=== PATIENT | male | born 2000 | race African-American/Black ===

== ENCOUNTER 2022-07-17 10:14 | Emergency (ER) | payer SELFPAY ==
[2022-07-17 10:43] LABS: Absolute Lymphocytes (CBC) 1.4 K/uL (0.7-4.9); Hematocrit 46.1 % (39.6-49.0); Lymphocytes % 24.7 % (15.3-44.8); MCV 91.1 fL (80-100); RBC Red Blood Cell Count 5.06 M/uL (4.33-5.43)
[2022-07-17] MEDS ORDERED: LEVETIRACETAM 500 MG/5 ML VIAL IV ONE (10:43)
[2022-07-17] MEDS ORDERED: NA CHLORIDE 0.9% 100 ML ONE (10:47)
[2022-07-17 10:59] LABS: Albumin 4.2 g/dL (3.4-5.0); Bilirubin Direct 0.3 mg/dL (0-0.2); Bilirubin Total 1.1 mg/dL (0.2-1.0); Potassium 3.4 mmol/L (3.5-5.1); Protein, Total 7.2 g/dL (6.4-8.2)
[2022-07-17 11:32] LABS: Urine Blood Negative (Negative); Urine Glucose Negative (Negative); Urine Protein Negative (Negative); Urine Specific Gravity 1.015 (1.005-1.030); Urine pH 7.5 (5.0-7.0)
--- NOTE | 2022-07-17 11:34 | EDPHYS ---
Physician Documentation [facility] Name: Cesar Clark Age: 22 yrs Sex: Male : 2000 Arrival Date: 07/17/2022 Time: 10:14 Bed 18 Private MD: ED Physician Benjie Wynne HPI: 07/17 11:27 This 22 yrs old Black Male presents to ER via Wheelchair with complaints of Seizure. en 11:27 22-year-old male with history of seizure disorder presents to ED after seizure activity en prior to arrival. Patient's been out of his Keppra for 3 weeks now. His breakthrough seizures are triggered when he runs out of medications. He describes it as had frequent twitching that will eventually turn into full-blown tonic-clonic seizures if not medicated. Patient reported that he started twitching and his coworker grabbed him before he fell to the ground. No recent illnesses, fever, chills, nausea, vomiting. He does not have a local primary care provider. Historical: - Allergies: 10:23 Shellfish Containing Products; vg1 - Home Meds: 10:23 Keppra Oral [Active]; vg1 - PMHx: 10:23 Seizure; vg1 - PSHx: 10:23 None; vg1 - Immunization history:: Client reports having NOT received the Covid vaccine. - Social history:: Smoking status: Reported history of juuling and/or vaping. ROS: 11:27 Constitutional: Negative for fever, chills, and weight loss. en 11:27 Neuro: Positive for seizure activity. 11:27 All other systems are negative. en Exam: 11:27 Constitutional: This is a well developed, well nourished patient who is awake, alert, en and in no acute distress. Head/Face: Normocephalic, atraumatic. Eyes: Pupils equal round and reactive to light, extra-ocular motions intact. Lids and lashes normal. Conjunctiva and sclera are non-icteric and not injected. Cornea within normal limits. Periorbital areas with no swelling, redness, or edema. Cardiovascular: Regular rate and rhythm with a normal S1 and S2. No gallops, murmurs, or rubs. Normal PMI, no JVD. No pulse deficits. Respiratory: Lungs have equal breath sounds bilaterally, clear to auscultation and percussion. No rales, rhonchi or wheezes noted. No increased work of breathing, no retractions or nasal flaring. Neuro: Awake and alert, GCS 15, oriented to person, place, time, and situation. Cranial nerves II-XII grossly intact. Motor strength 5/5 in all extremities. Sensory grossly intact. Cerebellar exam normal. Unable to test gait on arrival secondary to frequent twitching concerning for impending seizure Vital Signs: 10:18 BP 136 / 79; Pulse 77; Resp 16; Temp 98.2(O); Pulse Ox 100% on R/A; Weight 77.11 kg; vg1 Height 6 ft. 1 in. (185.42 cm); 11:52 BP 128 / 79; Pulse 44; Resp 17; Pulse Ox 100% on R/A; kr3 10:18 Body Mass Index 22.43 (77.11 kg, 185.42 cm) vg1 Mari Coma Score: 10:23 Eye Response: spontaneous(4). Verbal Response: oriented(5). Motor Response: obeys vg1 commands(6). Total: 15. MDM: 10:43 Patient medically screened. en 11:27 Differential diagnosis: seizure. Data reviewed: vital signs, nurses notes, lab test en result(s), EKG, EKG with sinus bradycardia at [address] inversion in lead III but no reciprocal changes.. Consideration of Admission/Observation Escalation of care including admission/observation considered. Considered admission but breakthrough seizure is most likely cause and twitching has resolved after Keppra. No additional progression of seizure in the ED so patient is safe for discharge. I considered the following discharge prescriptions or medication management in the emergency department Medications were administered in the Emergency Department. See MAR IV Keppra given in the ED for low. Independent interpretation of the following test(s) in the Emergency Department satellite project site monitor: Patient with normal sinus rhythm at 74 bpm. Is not consistent with the EKG that showed 42 bpm. He is not symptomatic. ED course: Reviewed labs with patient. Spoke at length regarding community resources and provided access information for continued refills of his Keppra. We will give a single month refill to allow him time to get in. He was able to ambulate to the bathroom unassisted and the twitching is stopped. His heart rate is remained within normal limits. Will DC home in care of coworker. 07/17 10:23 Order name: Basic Metabolic Panel en 07/17 10:23 Order name: CBC with Diff en 07/17 10:23 Order name: Hepatic Function en 07/17 10:23 Order name: Magnesium en 07/17 10:23 Order name: Cardiac monitoring; Complete Time: 10:35 en 07/17 10:23 Order name: EKG - Nurse/Tech; Complete Time: 11:19 en 07/17 10:23 Order name: IV Saline Lock; Complete Time: 10:52 en 07/17 10:23 Order name: Labs collected and sent; Complete Time: 10:52 en 07/17 10:23 Order name: NPO; Complete Time: 10:34 en 07/17 10:23 Order name: O2 Per Protocol; Complete Time: 10:34 en 07/17 10:23 Order name: O2 Sat Monitoring; Complete Time: 10:35 en 07/17 10:23 Order name: Urine Dipstick-Ancillary (obtain specimen); Complete Time: 11:30 en 07/17 10:54 Order name: CBC with Automated Diff; Complete Time: 11:26 EDMS 07/17 10:59 Order name: Basic Metabolic Panel; Complete Time: 11:26 EDMS 07/17 10:59 Order name: Liver (Hepatic) Function; Complete Time: 11:26 EDMS 07/17 10:59 Order name: Magnesium; Complete Time: 11:26 EDMS 07/17 11:33 Order name: Urine Dipstick-Ancillary EDMS Administered Medications: 10:52 Drug: Keppra (levETIRAcetam) 1000 mg Route: IV; Rate: bolus; Site: right antecubital; kr3 11:56 Follow up: Response: No adverse reaction; IV Status: Completed infusion; IV Intake: kr3 100ml Disposition: 13:58 Co-signature as Attending Physician, Benjie Wynne MD I agree with the assessment and kdr plan of care. Disposition Summary: 07/17/22 11:33 Discharge Ordered Location: Home en Problem: an acute exacerbation en Symptoms: have improved en Condition: Stable en Diagnosis - Breakthrough Seizure en Followup: en - With: Karen Chavira MD - When: 1 - 2 days - Reason: Discharge Instructions: - Discharge Summary Sheet en - Seizure, Adult, [id number] en Forms: - Medication Reconciliation Form en - Thank You Letter en - Antibiotic Education en - Prescription Opioid Use en Prescriptions: - Keppra 500 mg Oral Tablet - take 1 tablet by ORAL route every 12 hours; 60 tablet; Refills: 0, Product en Selection Permitted Signatures: Dispatcher [employer] Benjie Estrada MD MD kdr Garcia, Victoria RN RN vg1 Bhavana Desai PA PA en Loida Lakhani RN RN kr3 Corrections: (The following items were deleted from the chart) 10:24 10:23 Allergies: No Known Allergies; vg1 vg1
--- NOTE | 2022-07-17 11:34 | ER ---
Nurse's Notes [facility] Name: Cesar Clark Age: 22 yrs Sex: Male : 2000 Arrival Date: 07/17/2022 Time: 10:14 Bed 18 Private MD: Diagnosis: Breakthrough Seizure Presentation: 07/17 10:18 Chief complaint: Patient states: Was at work and stood up and felt a seizure coming on vg1 and coworker was by to lay pt down. Coronavirus screen: Vaccine status: Patient reports being unvaccinated. Client denies travel out of the [place] in the last 14 days. Ebola Screen: Patient negative for fever greater than or equal to 101.5 degrees Fahrenheit, and additional compatible Ebola Virus Disease symptoms Patient denies exposure to infectious person. Initial Sepsis Screen: Does the patient meet any 2 criteria? No. Patient's initial sepsis screen is negative. Does the patient have a suspected source of infection? No. Patient's initial sepsis screen is negative. Risk Assessment: Do you want to hurt yourself or someone else? Patient reports no desire to harm self or others. Onset of symptoms was July 17, 2022. 10:18 Method Of Arrival: Wheelchair vg1 10:18 Acuity: MIRIAN 2 vg1 Triage Assessment: 10:23 General: Appears in no apparent distress. comfortable, Behavior is calm, cooperative. vg1 Pain: Denies pain. Neuro: Level of Consciousness is awake, alert, obeys commands, Oriented to person, place, time, situation. Cardiovascular: Patient's skin is warm and dry. Respiratory: Airway is patent Respiratory effort is even, unlabored. Musculoskeletal: Circulation, motion, and sensation intact. pt appears to have jerking motions in triage. Historical: - Allergies: 10:23 Shellfish Containing Products; vg1 - Home Meds: 10:23 Keppra Oral [Active]; vg1 - PMHx: 10:23 Seizure; vg1 - PSHx: 10:23 None; vg1 - Immunization history:: Client reports having NOT received the Covid vaccine. - Social history:: Smoking status: Reported history of juuling and/or vaping. Screenin:53 [facility] ED Fall Risk Assessment (Adult) History of falling in the last 3 months, kr3 including since admission Yes- physiologic fall (2 pts) Confusion or Disorientation No (0 pts) Intoxicated or Sedated No (0 pts) Impaired Gait No (0 pts) Mobility Assist Device Used No (0 pt) Altered Elimination No (0 pt) Score/Fall Risk Level 0 - 2 = Low Risk Oriented to surroundings, Maintained a safe environment, Educated pt \T\ family on fall prevention, incl call for assistance when getting out of bed, Assessed \T\ reinforced patient's understanding of fall precautions, Hourly rounding (assess needs \T\ fall precautionary measures) done. Abuse screen: Denies threats or abuse. Nutritional screening: No deficits noted. Tuberculosis screening: No symptoms or risk factors identified. Assessment: 10:33 Reassessment: see triage note. Musculoskeletal: jerking motion of entire body every kr3 30-45 seconds. 11:25 Reassessment: patient able to ambulate with steady gait to bathroom. kr3 11:51 Reassessment: Patient appears in no apparent distress at this time. Patient and/or kr3 family updated on plan of care and expected duration. Pain level reassessed. Patient is alert, oriented x 3, equal unlabored respirations, skin warm/dry/pink. jerking motion has subsided. Vital Signs: 10:18 BP 136 / 79; Pulse 77; Resp 16; Temp 98.2(O); Pulse Ox 100% on R/A; Weight 77.11 kg; vg1 Height 6 ft. 1 in. (185.42 cm); 11:52 BP 128 / 79; Pulse 44; Resp 17; Pulse Ox 100% on R/A; kr3 10:18 Body Mass Index 22.43 (77.11 kg, 185.42 cm) vg1 Mari Coma Score: 10:23 Eye Response: spontaneous(4). Verbal Response: oriented(5). Motor Response: obeys vg1 commands(6). Total: 15. ED Course: 10:14 Patient arrived in ED. am2 10:18 Benjie Wynne MD is Attending Physician. kdr 10:21 Bhavana Desai PA is PHCP. en 10:23 Triage completed. vg1 10:23 Arm band placed on. vg1 10:28 Bed in low position. Call light in reach. Side rails up X2. Seizure precautions kr3 initiated. 10:33 Kar, Loida, RN is Primary Nurse. kr3 10:37 Initial lab(s) drawn, by nv, sent to lab. Inserted saline lock: 22 gauge in right tm3 antecubital area, using aseptic technique. 11:21 EKG done, by ED staff. tm3 11:32 Karen Chavira MD is Referral Physician. en 11:32 Urine collected: clean catch specimen, clear. tm3 11:55 No provider procedures requiring assistance completed. IV discontinued, intact, kr3 bleeding controlled, No redness/swelling at site. Pressure dressing applied. Administered Medications: 10:52 Drug: Keppra (levETIRAcetam) 1000 mg Route: IV; Rate: bolus; Site: right antecubital; kr3 11:56 Follow up: Response: No adverse reaction; IV Status: Completed infusion; IV Intake: kr3 100ml Medication: 11:55 VIS not applicable for this client. kr3 Intake: 11:56 IV: 100ml; Total: 100ml. kr3 Outcome: 11:33 Discharge ordered by . en 11:53 Patient left the ED. kr3 11:55 Discharged to home ambulatory. kr3 11:55 Condition: stable 11:55 Discharge instructions given to patient, Instructed on discharge instructions, follow up and referral plans. medication usage, Demonstrated understanding of instructions, follow-up care, medications, Prescriptions given X 1. Signatures: Adama Garcia tm3 Benjie Wynne MD MD [facility] Victoria, RN RN vg1 Bhavana Desai PA PA en Loida Lakhani, RN RN kr3 Corrections: (The following items were deleted from the chart) 10:24 10:23 Allergies: No Known Allergies; vg1 vg1
[2022-07-17 12:27] VITALS: BP 128/79; TEMP 98.2; O2SAT 100
--- NOTE | 2022-07-18 16:41 | EKG ---
Test Date: 2022-07-17 Test Time: 11:18:30 Media Coordinator: TM MEASUREMENT RESULTS: Intervals: Rate: 42 NE: 188 QRSD: 90 QT: 428 QTc: 357 [place]: P: 14 NE: 188 QRS: 71 T: 18 INTERPRETIVE STATEMENTS: Marked sinus bradycardia Nonspecific ST and T wave abnormality Abnormal ECG No previous ECG available for comparison Electronically Signed On 07-18-22 16:37:10 [employer]UST SORTER by Dante Meza
== END 2022-07-17 11:53 | disposition home or self-care (01) ==
LOC: ER 10:14
DX: G40.909 Epilepsy, unspecified, not intractable, without status epilepticus (principal)
CPT/HCPCS: 36415; 80048; 80076; 81003; 83735; 85025; 93005; 96365; 99284; J1953